=== PATIENT | female | born 1975 | race Caucasian/White ===

== ENCOUNTER 2020-10-29 16:29 | Emergency (ER) | payer OTHER ==
[~2020-10-29 16:29] MED LIST: LIPITOR20 MG PO; SYNTHROID25 MCG PO; ZESTRIL20 MG PO
[2020-10-29 18:15] LABS: BASOPHIL 0.3 % (0-2); EOSINOPHIL 0 % (0-5); HCT 39.4 % (37.0-47.0); HGB 14.1 g/dl (12.5-16.0); LYMPHOCYTE 5.3 % (15-48); MCH 34.4 pg (25.0-31.0); MCHC 35.8 g/dL (32.0-36.0); MCV 96.1 fL (78.0-100.0); MONOCYTE 2.4 % (0-12); MPV 9.5 fL (6.0-9.5); NRBC 0; PLT 115 K/uL (150-400); RDW 12.1 % (11.5-14.0); WBC 7.1 K/uL (4.0-10.5)
[2020-10-29 18:26] LABS: ALBUMIN 3.9 g/dL (3.4-5.0); ALKALINE PHOSHATASE 127 U/L (46-116); ALT 69 U/L (14-59); AST 99 U/L (15-37); BILIRUBIN - TOTAL 0.9 mg/dL (0.2-1.0); BUN 20 mg/dL (7-18); CHLORIDE 92 mmol/L (98-107); CO2 (BICARBONATE) 18 mmol/L (21-32); CREATININE 1.05 mg/dL (0.51-0.95); GLOBULIN (CALCULATION) 3.7 g/dL; GLUCOSE 227 mg/dL (74-106); MAGNESIUM 1.4 mg/dL (1.8-2.4); POTASSIUM 4.3 mmol/L (3.5-5.1); TOTAL PROTEIN 7.6 g/dL (6.4-8.2)
[2020-10-29 18:28] LABS: NEUTROPHIL 91.7 % (41-80)
[2020-10-29 19:13] LABS: INR 1.12 (0.9-1.2); PROTHROMBIN TIME 13.7 SECONDS (11.4-13.6)
[2020-10-29 19:14] LABS: PTT 34.9 SECONDS (22.2-34.7)
[2020-10-29 19:55] LABS: BILIRUBIN NEGATIVE (NEGATIVE); BLOOD 3+ Ery/uL (NEGATIVE); CLARITY HAZY (CLEAR); COLOR YELLOW (YELLOW); GLUCOSE (U) NORMAL (NORMAL); LEUKOCYTES 1+ Leu/uL (NEGATIVE); NITRITE POSITIVE (NEGATIVE); PROTEIN 2+ mg/dL (NEGATIVE); SPECIFIC GRAVITY >=1.030 (1.001-1.030); UROBILINOGEN 0.2 mg/dL (0.2-1.0); pH 5.5 (5.0-9.0)
[2020-10-29 20:01] LABS: AMPHETAMINES NEGATIVE (NEGATIVE); BARBITURATES NEGATIVE (NEGATIVE); ECSTASY (MDMA) NEGATIVE (NEGATIVE); MARIJUANA (THC) NEGATIVE (NEGATIVE); METHADONE NEGATIVE (NEGATIVE); OPIATES NEGATIVE (NEGATIVE); OXYCODONE NEGATIVE (NEGATIVE)
[2020-10-29 20:04] LABS: BACTERIA 4+; MUCOUS MODERATE; URINARY WBC TNTC
== END 2020-10-29 22:33 | disposition other institution (70) ==
LOC: FER 16:29
PROVIDERS: Emergency Medicine
DX: G40.901 Epilepsy, unspecified, not intractable, with status epilepticus (principal); F10.239 Alcohol dependence with withdrawal, unspecified; R74.02 Elevation of levels of lactic acid dehydrogenase [LDH]; E87.2 Acidosis; I10 Essential (primary) hypertension; F17.200 Nicotine dependence, unspecified, uncomplicated; Y90.0 Blood alcohol level of less than 20 mg/100 ml; Z20.822 Contact with and (suspected) exposure to COVID-19
CPT/HCPCS: 31500; 36415; 36600; 70450; 71045; 73590; 80053; 80305; 81001; 82803; 83605; 83735; 84145; 84443; 84484; 85025; 85610; 85730; 92950; 93005; 96365; 96366; 96368; 96375; G0480; J0696; J1953; J2060; J2250; J2560; J2704; J3360; J3411; J3475; J3490; J7030; U0002

== ENCOUNTER 2021-06-13 11:06 | Inpatient (IN) | payer OTHER ==
[~2021-06-13] VITALS: Ht 167.6 cm; Wt 124.5 kg
[2021-06-13 13:32] LABS: BASOPHIL 0.2 % (0-2); EOSINOPHIL 0 % (0-5); HCT 29.3 % (37.0-47.0); HGB 10.8 g/dl (12.5-16.0); LYMPHOCYTE 10.7 % (15-48); MCH 34.4 pg (25.0-31.0); MCHC 36.9 g/dL (32.0-36.0); MCV 93.3 fL (78.0-100.0); MONOCYTE 2.2 % (0-12); MPV 11.7 fL (6.0-9.5); NEUTROPHIL 86.6 % (41-80); NRBC 0; RBC 3.14 M/uL (4.20-5.40); RDW 14.5 % (11.5-14.0); WBC 5.9 K/uL (4.0-10.5)
[2021-06-13 13:54] LABS: PLT 38 K/uL (150-400)
[2021-06-13 13:56] LABS: ALBUMIN 2.1 g/dL (3.4-5.0); BUN/CREAT RATIO (CALC) 6.5 RATIO; CREATININE 3.7 mg/dL (0.51-0.95); GLOBULIN (CALCULATION) 3.9 g/dL; POTASSIUM 3.4 mmol/L (3.5-5.1)
[2021-06-13 13:59] LABS: BILIRUBIN - TOTAL 5.4 mg/dL (0.2-1.0)
[2021-06-13 16:01] LABS: BUN/CREAT RATIO (CALC) 6.4 RATIO; CREATININE 3.59 mg/dL (0.51-0.95); POTASSIUM 3.6 mmol/L (3.5-5.1)
[2021-06-13] MEDS ORDERED: LIPITOR20 MG PO (20:16)
[2021-06-13 21:14] LABS: AMPHETAMINES NEGATIVE (NEGATIVE); BARBITURATES NEGATIVE (NEGATIVE); ECSTASY (MDMA) NEGATIVE (NEGATIVE); MARIJUANA (THC) NEGATIVE (NEGATIVE); METHADONE NEGATIVE (NEGATIVE); OPIATES NEGATIVE (NEGATIVE); OXYCODONE NEGATIVE (NEGATIVE)
[2021-06-13 21:53] LABS: BUN/CREAT RATIO (CALC) 7.4 RATIO; CREATININE 3.53 mg/dL (0.51-0.95)
[2021-06-13 21:54] LABS: POTASSIUM 5.1 mmol/L (3.5-5.1)
[2021-06-14 02:52] LABS: BUN/CREAT RATIO (CALC) 7.4 RATIO; CREATININE 3.65 mg/dL (0.51-0.95)
[2021-06-14 05:10] LABS: HBSAG SCREEN Negative (Negative); HEP A AB, IGM Negative (Negative); HEP B CORE AB, IGM Negative (Negative); HEP C VIRUS AB 0.2 (0.0-0.9)
[2021-06-14 07:32] LABS: ALBUMIN 1.4 g/dL (3.4-5.0); BILIRUBIN - TOTAL 4.7 mg/dL (0.2-1.0); BUN/CREAT RATIO (CALC) 6.5 RATIO; CREATININE 3.85 mg/dL (0.51-0.95); MAGNESIUM 2.3 mg/dL (1.8-2.4); PHOSPHORUS 2.8 mg/dL (2.6-4.7); POTASSIUM 3.8 mmol/L (3.5-5.1); TOTAL PROTEIN 4.4 g/dL (6.4-8.2)
[2021-06-14 07:36] LABS: BASOPHIL 0 % (0-2); EOSINOPHIL 0.4 % (0-5); HCT 23.2 % (37.0-47.0); HGB 8.7 g/dl (12.5-16.0); LYMPHOCYTE 11.5 % (15-48); MCH 34.5 pg (25.0-31.0); MCHC 37.5 g/dL (32.0-36.0); MCV 92.1 fL (78.0-100.0); MONOCYTE 5.9 % (0-12); MPV 13.4 fL (6.0-9.5); NEUTROPHIL 81.4 % (41-80); NRBC 0; PLT 37 K/uL (150-400); RBC 2.52 M/uL (4.20-5.40); RDW 14.7 % (11.5-14.0)
[2021-06-14 07:39] LABS: WBC 5.1 K/uL (4.0-10.5)
[2021-06-14 14:26] LABS: IRON % SATURATION 114.5 %SAT (20-50)
[2021-06-14 14:43] LABS: BILIRUBIN 2+ mg/dL (NEGATIVE); BLOOD 3+ Ery/uL (NEGATIVE); CLARITY CLEAR (CLEAR); COLOR ORANGE (YELLOW); GLUCOSE (U) NORMAL (NORMAL); LEUKOCYTES NEGATIVE Leu/uL (NEGATIVE); NITRITE POSITIVE (NEGATIVE); PROTEIN 1+ mg/dL (NEGATIVE); SPECIFIC GRAVITY 1.025 (1.001-1.030)
[2021-06-14 14:46] LABS: URINE CREATININE 233.09 mg/dL (29.00-226.00); URINE TOTAL PROTEIN-RANDOM 155.2 mg/dL (<11.9)
[2021-06-14 15:06] LABS: BACTERIA 3+
[2021-06-14 15:07] LABS: BUN/CREAT RATIO (CALC) 6.6 RATIO; CREATININE 3.93 mg/dL (0.51-0.95); POTASSIUM 3.5 mmol/L (3.5-5.1)
[2021-06-14 15:57] LABS: BASOPHIL 0 % (0-2); EOSINOPHIL 0.2 % (0-5); HCT 23.4 % (37.0-47.0); HGB 8.7 g/dl (12.5-16.0); LYMPHOCYTE 9.8 % (15-48); MCHC 37.2 g/dL (32.0-36.0); MCV 91.4 fL (78.0-100.0); MONOCYTE 4.7 % (0-12); MPV 12.8 fL (6.0-9.5); NEUTROPHIL 83.9 % (41-80); NRBC 0; PLT 37 K/uL (150-400); RBC 2.56 M/uL (4.20-5.40); RDW 14.6 % (11.5-14.0); WBC 5.8 K/uL (4.0-10.5)
[2021-06-14 18:49] LABS: INR 2.69 (0.9-1.2); PROTHROMBIN TIME 27.6 SECONDS (11.8-13.4)
[2021-06-14 22:36] LABS: BUN/CREAT RATIO (CALC) 6.5 RATIO; CREATININE 4.02 mg/dL (0.51-0.95); POTASSIUM 3.3 mmol/L (3.5-5.1)
--- NOTE | 2021-06-14 23:45 | NUR ---
INITIAL CIWA ASSESSMENT -- CIWA SCORE = 0 RE-ASSESS AT 06/15/2021 @ 0800.
[2021-06-15 04:42] LABS: BASOPHIL 0.1 % (0-2); EOSINOPHIL 1.2 % (0-5); HCT 23.4 % (37.0-47.0); HGB 8.5 g/dl (12.5-16.0); LYMPHOCYTE 13.5 % (15-48); MCH 33.5 pg (25.0-31.0); MCHC 36.3 g/dL (32.0-36.0); MCV 92.1 fL (78.0-100.0); MPV 12.6 fL (6.0-9.5); NRBC 0.3; RBC 2.54 M/uL (4.20-5.40); RDW 14.8 % (11.5-14.0); WBC 6.7 K/uL (4.0-10.5)
[2021-06-15 04:47] LABS: PLT 39 K/uL (150-400)
[2021-06-15 04:48] LABS: NEUTROPHIL 76.6 % (41-80)
[2021-06-15 05:16] LABS: ALBUMIN 1.3 g/dL (3.4-5.0); BILIRUBIN - TOTAL 4.6 mg/dL (0.2-1.0); BUN/CREAT RATIO (CALC) 6.2 RATIO; CREATININE 4.35 mg/dL (0.51-0.95); GLOBULIN (CALCULATION) 2.9 g/dL; POTASSIUM 3.3 mmol/L (3.5-5.1); TOTAL PROTEIN 4.2 g/dL (6.4-8.2)
[2021-06-15 18:39] LABS: CREATININE 4.84 mg/dL (0.51-0.95); POTASSIUM 3.4 mmol/L (3.5-5.1)
--- NOTE | 2021-06-15 22:46 | NUR ---
06/15/20211999 -- CIWA SCORE = 0
[2021-06-16 05:09] LABS: BASOPHIL 0.2 % (0-2); EOSINOPHIL 1.5 % (0-5); HCT 22.5 % (37.0-47.0); HGB 8.3 g/dl (12.5-16.0); LYMPHOCYTE 16.5 % (15-48); MCH 34.2 pg (25.0-31.0); MCHC 36.9 g/dL (32.0-36.0); MCV 92.6 fL (78.0-100.0); MONOCYTE 7.3 % (0-12); MPV 12.9 fL (6.0-9.5); NRBC 0.2; RBC 2.43 M/uL (4.20-5.40); WBC 9.1 K/uL (4.0-10.5)
[2021-06-16 05:17] LABS: INR 2.59 (0.9-1.2); PROTHROMBIN TIME 26.8 SECONDS (11.8-13.4)
[2021-06-16 05:19] LABS: PLT 39 K/uL (150-400)
[2021-06-16 05:20] LABS: NEUTROPHIL 73.2 % (41-80)
[2021-06-16 05:25] LABS: ALBUMIN 1.1 g/dL (3.4-5.0); BILIRUBIN - TOTAL 4.5 mg/dL (0.2-1.0); BUN/CREAT RATIO (CALC) 5.3 RATIO; CREATININE 5.32 mg/dL (0.51-0.95); GLOBULIN (CALCULATION) 2.7 g/dL; POTASSIUM 3.3 mmol/L (3.5-5.1); TOTAL PROTEIN 3.8 g/dL (6.4-8.2)
[2021-06-16] MEDS ORDERED: COREG 6.25MG6.25 MG PO (10:24)
[2021-06-16] MEDS ORDERED: FOLIC ACID1 MG PO (10:24)
--- NOTE | 2021-06-16 12:39 | NUR ---
LATE ENTRY FOR 1030 AM MD ORDER FOR MIDLINE OBTAINED. SUPPLIES FOR A 20G, 10 CM MIDLINE CATHETER WAS GATHERED AND PROCEDURE EXPLAINED TO PATIENT. PROVIDED EDUCATION FOR CARE AND PURPOSE OF THE LINE. TOURNIQUET APPLIED TO LEFT ARM AND VEIN FOR ACCESS WAS VISUALIZED USING ULTRASOUND. THE SITE WAS MARKED WITH SURIGAL MARKING PEN AND THE TOURNIQUET WAS RELEASED. THE SITE WAS CLEANED WITH CHLORHEXIDINE AND THE MIDLINE KIT WAS OPENED IN A STERILE FASHION. A STERILE GOWN AND GLOVES WERE DONNED, A STERILE PROBE COVER WAS APPLIED TO THE ULTRASOUND PROBE, AND THE STERILE DRAPE WAS APPLIED TO THE PATIENT'S LEFT UPPER EXTREMITY OVER THE PLANNED INSERTION SITE TO ESTABLISH STERILE FIELD FOR PLACEMENT. THE TOURNIQUET WAS REAPPLIED BY ASSISTING STAFF MEMBER. THE VEIN WAS REVISUALIZED WITH ULTRASOUND AND VEIN ACCESSED WITH THE INTRODUCER NEEDLE. BLOOD RETURN WAS NOTED THROUGH THE NEEDLE AND THE GUIDEWIRE WAS THREADED WITHOUT DIFFICULTY. THE TOURNIQUET WAS RELEASED. THE SHEATH AND CANNULA WERE PLACED OVER THE GUIDEWIRE WITHOUT DIFFICULTY AND THE GUIDEWIRE WAS FULLY REMOVED. THE SHEATH WAS REMOVED AND BLOOD RETURN WAS NOTED THROUGH THE CANNULA. THE FLUSHED EXTENSION TUBING WAS APPLIED AND BLOOD WAS EASILY ASPIRATED THROUGH THE TUBING. THE TUBING WAS THEN FLUSHED WITHOUT DIFFICULTY. THE STAT-LOCK WAS PLACED OVER THE CANNULA, A BIOPATCH APPLIED OVER THE CANNULA AT THE INSERTION SITE, AND A TEGADERM WAS PLACED TO SECURE THE SITE. THE PATIENT TOLERATED THE PROCEDURE WITHOUT PAIN OR OTHER DIFFICULTY. THE PROCEDURE WAS MONITORED BY DR. NANCY PENG MD. THE PATIENT WAS GIVEN THE PATIENT EDUCATION SHEET FROM THE KIT AND WAS PROVIDED INFORMATION ON PLACEMENT OF THE MIDLINE FOR MONITORING PURPOSES IF NEEDED AFTER DISCHARGE. INFORMATION REGARDING THE KIT WAS PLACED IN THE PATIENT CHART. SIGNAGE WAS PLACED IN THE PATIENT'S ROOM TO ALERT STAFF OF NO BLOOD PRESSURES/STICKS IN LEFT ARM.
[2021-06-16 12:50] LABS: BUN/CREAT RATIO (CALC) 5.2 RATIO; CREATININE 5.62 mg/dL (0.51-0.95); POTASSIUM 3.8 mmol/L (3.5-5.1)
[2021-06-16 15:48] LABS: BUN/CREAT RATIO (CALC) 5.3 RATIO; CREATININE 5.7 mg/dL (0.51-0.95); POTASSIUM 3.9 mmol/L (3.5-5.1)
[2021-06-17 05:04] LABS: BASOPHIL 0.1 % (0-2); EOSINOPHIL 1.5 % (0-5); HCT 22.6 % (37.0-47.0); LYMPHOCYTE 20.3 % (15-48); MCH 33.3 pg (25.0-31.0); MCHC 35.4 g/dL (32.0-36.0); MCV 94.2 fL (78.0-100.0); MONOCYTE 9.7 % (0-12); MPV 12.2 fL (6.0-9.5); RDW 15.7 % (11.5-14.0); WBC 7.3 K/uL (4.0-10.5)
[2021-06-17 05:07] LABS: NEUTROPHIL 62.1 % (41-80); PLT 31 K/uL (150-400)
[2021-06-17 05:29] LABS: INR 2.71 (0.9-1.2); PROTHROMBIN TIME 27.8 SECONDS (11.8-13.4)
[2021-06-17 05:30] LABS: ALBUMIN 2.2 g/dL (3.4-5.0); BUN/CREAT RATIO (CALC) 5.1 RATIO; CREATININE 6.28 mg/dL (0.51-0.95); GLOBULIN (CALCULATION) 2.3 g/dL; MAGNESIUM 2.2 mg/dL (1.8-2.4); POTASSIUM 4.2 mmol/L (3.5-5.1); TOTAL PROTEIN 4.5 g/dL (6.4-8.2)
[2021-06-17 06:05] LABS: BAND 3 % (0-10); EOSINOPHIL(M) 1 % (0-5); LYMPHOCYTE(M) 18 % (15-48); MONOCYTE(M) 4 % (0-12); NEUTROPHILS(M) 74 % (41-80); TOTAL CELL COUNT 100
[2021-06-17 06:07] LABS: PLATELET ESTIMATE DECREASED
[2021-06-17 06:08] LABS: PLATELET MORPHOLOGY NORMAL
[2021-06-18 05:08] LABS: BASOPHIL 0.1 % (0-2); EOSINOPHIL 1.6 % (0-5); HCT 22.7 % (37.0-47.0); LYMPHOCYTE 22.3 % (15-48); MCH 33.2 pg (25.0-31.0); MCHC 35.2 g/dL (32.0-36.0); MCV 94.2 fL (78.0-100.0); MONOCYTE 10.4 % (0-12); MPV 12.1 fL (6.0-9.5); NEUTROPHIL 63.7 % (41-80); NRBC 0.2; RBC 2.41 M/uL (4.20-5.40); RDW 16.1 % (11.5-14.0); WBC 8.4 K/uL (4.0-10.5)
[2021-06-18 05:38] LABS: ALBUMIN 2.6 g/dL (3.4-5.0); BILIRUBIN - TOTAL 5.5 mg/dL (0.2-1.0); BUN/CREAT RATIO (CALC) 4.6 RATIO; CREATININE 7.25 mg/dL (0.51-0.95); PLT 29 K/uL (150-400); POTASSIUM 4.4 mmol/L (3.5-5.1); TOTAL PROTEIN 4.6 g/dL (6.4-8.2)
--- NOTE | 2021-06-18 09:44 | NUR ---
06/18/21 Ms. Pascal's condition has declined. She is on the waiting list for transfer. Emotional support is being provided.
--- NOTE | 2021-06-18 18:28 | NUR ---
SARITA BERRIOS VERIFIED EARLIER IN SHIFT TO [facility] TO KEEP MAP GREATER THAN 55. MD ORTIZ ACKNOWLEDGED AND AGREED AFTER A LINE WAS PLACED AT 1630 MD OTRIZ ADVISED FOR MAP TO BE 65 AND GREATER LEVOPHED WAS SIGNIFIICANTLY INCREASED FROM 1630 TILL 1829 TO TRY AND OBTAIN MAP 65 AND GREATER MD ORTIZ WAS CALLED STATED THAT FROM 1630 TO 1829 LEVOPHED HAD BEEN INCREASED FROM 10MCG TO 24MCG 1829 MD ORTIZ AGREES FOR MAP TO BE MAINTAINED GREATER THAN 55 ORDER WILL BE PLACED WILL CONTINUE TO MONITOR PATIENT
--- NOTE | 2021-06-18 18:44 | NUR ---
1842 CALLED MD ORTIZ TO DISCUSS PT A LINE PRESSURE CURRENT PRESSURE 62/38 AT THE MAX FOR LEVOPHED AT 30MCG AT 113ML/HR DIANA TO PLACE NEW ORDERS MENTONS DOING JUDITH AT FIRST AFTER DISCUSSING THE4 VOLUMNE WITH JUDITH DECIDED HE WOULD BE PLACING AN ORDER FOR DOPAMINE
--- NOTE | 2021-06-18 19:25 | NUR ---
1899 DOPAMIN STARTED ON PATIENT WITH BP 60/30 AT 4MCG/KG/MIN AND 17.9ML AND HOUR 1923 DOPAMINE INCREASED TO 8MCG/KG/MIN 35.7ML FOR BP 60/40
--- NOTE | 2021-06-18 23:26 | NUR ---
1900 BP 72/44 PT KWAKUY ON LVOPHED MAXED OUT AT 30MCG/MIN--113 ML/HR, DOPAMINE STARTED BY ESTELLE AT 1845, RN INCREASED DRIP FROM 4MCG/KG/MIN BY 4MCG/KG/MIN PER 15 MINUTES UNTIL MAXED OUT AT 20MCG/KG/MIN 89.3ML/HR, CALLED , MILLY QUESTIONED WHY SHE WASN'T RECIEVING DIALYSIS, WHY SHE WASN'T TRANSFERED, AND SAID TO GIVE ONE 250ML NS BOLUS NOW AND CALL [facility]RIC[facility], NEPHRO CONSULTED, DR. PULIDO REAFFIRMED NO ACUTE DIALYSIS CAPABLILTY HERE, AND PT HAS BEEN ACCEPTED BY [facility], AND TO CONTINUE TO GIVE NS BOLUS NEEDED. MILLY CALLED, ASKED FOR FURTHER ORDERS BP STILL 57/34 VALE ORDERED TWO X BLOOD CULTURES, ADDITIONAL ABX (LINEZOLD 600MG/300ML @ 300MLS/HR AND CEFEPIME 2G/100ML @100ML/HR) AND THREE MORE NS 250 BOLUSES AND TO INITIATE FLUIDS NS @250ML/HR CONTINUOUS, HE ALSO ORDERED VASOPRESSIN TO TITRATE, RN TITRATED VASOPRESSIN TO MAX AT 2.4U/HR OR 2.4ML/HR...DR JOHNS ER DOCTOR CALLED TO PLACE CENTRAL LINE TO INFUSE FLUIDS/MEDS, DR. JOHNS PLACE R FEMORAL TRIPLE LUMEN AT APPROXIMATELY 2300 AND SAID WAS GOOD FOR USE. PATIENTS BLOOD PRESSURE HAS STABILIZED AT 87/52 VIA RIGHT RADIAL A-LINE.
[2021-06-19 03:59] LABS: BASOPHIL 0.2 % (0-2); EOSINOPHIL 0.5 % (0-5); HCT 24.8 % (37.0-47.0); HGB 8.7 g/dl (12.5-16.0); LYMPHOCYTE 15.1 % (15-48); MCH 33.9 pg (25.0-31.0); MCHC 35.1 g/dL (32.0-36.0); MCV 96.5 fL (78.0-100.0); MPV 12.3 fL (6.0-9.5); NEUTROPHIL 74.6 % (41-80); NRBC 0.3; RBC 2.57 M/uL (4.20-5.40); RDW 16.5 % (11.5-14.0); WBC 14.3 K/uL (4.0-10.5)
--- NOTE | 2021-06-19 04:01 | NUR ---
V/S 06/18/2021-06/19/2021 1900-81/46, 88HR 2000-57/43, 120HR 2100-61/34, 117HR 2200-91/54, 112HR 2300-103/61, 110HR 0000-90/58, 108HR 0100-79/52, 107HR 0200-82/55, 118HR 0300-81/53, 115HR 0400-77/52, 115HR
[2021-06-19 04:17] LABS: PLT 34 K/uL (150-400)
[2021-06-19 04:24] LABS: ALBUMIN 2.7 g/dL (3.4-5.0); BILIRUBIN - TOTAL 5.5 mg/dL (0.2-1.0); BUN/CREAT RATIO (CALC) 4.5 RATIO; CREATININE 7.29 mg/dL (0.51-0.95); GLOBULIN (CALCULATION) 2.2 g/dL; PHOSPHORUS 3.3 mg/dL (2.6-4.7); POTASSIUM 4.2 mmol/L (3.5-5.1); TOTAL PROTEIN 4.9 g/dL (6.4-8.2)
== END 2021-06-19 19:30 | disposition other institution (70) | DRG 682 ==
LOC: FER 11:06 → FTCU 18:20 → FICU 06-17 12:26
PROVIDERS: Allergy & Immunology; Internal Medicine; Internal Medicine Nephrology; Nurse Practitioner Family; ADMIT Allergy & Immunology Allergy
PROC: HZ2ZZZZ Detoxification Services for Substance Abuse Treatment (ICD-10-PCS; principal; 2021-06-13)
PROC: 05HY33Z Insertion of Infusion Device into Upper Vein, Percutaneous Approach (ICD-10-PCS; 2021-06-16)
PROC: 3E033XZ Introduction of Vasopressor into Peripheral Vein, Percutaneous Approach (ICD-10-PCS; 2021-06-17)
DX: N17.9 Acute kidney failure, unspecified (principal); K76.7 Hepatorenal syndrome; A41.9 Sepsis, unspecified organism; R65.21 Severe sepsis with septic shock; D61.818 Other pancytopenia; N39.0 Urinary tract infection, site not specified; E87.1 Hypo-osmolality and hyponatremia; D68.9 Coagulation defect, unspecified; Z20.822 Contact with and (suspected) exposure to COVID-19; K70.10 Alcoholic hepatitis without ascites; K70.31 Alcoholic cirrhosis of liver with ascites; K72.90 Hepatic failure, unspecified without coma; R19.5 Other fecal abnormalities; I95.9 Hypotension, unspecified; E16.2 Hypoglycemia, unspecified; N26.1 Atrophy of kidney (terminal); I10 Essential (primary) hypertension; E78.5 Hyperlipidemia, unspecified; E86.0 Dehydration; E03.9 Hypothyroidism, unspecified; G47.33 Obstructive sleep apnea (adult) (pediatric); E86.1 Hypovolemia; E83.51 Hypocalcemia; F10.10 Alcohol abuse, uncomplicated; Z90.3 Acquired absence of stomach [part of]; Z87.891 Personal history of nicotine dependence; Z79.890 Hormone replacement therapy; Z79.899 Other long term (current) drug therapy
CPT/HCPCS: 36415; 36600; 80048; 80053; 80061; 80074; 80305; 81001; 82140; 82150; 82570; 82803; 82962; 83036; 83540; 83550; 83605; 83690; 83735; 84100; 84156; 84300; 84439; 84443; 84484; 85025; 85610; 87040; 93005; 96365; 96375; 96376; 97162; 97166; 97530-GP; 97535; C1751; C9113; G0480; J0610; J0692; J0696; J1265; J1940; J2020; J2354; J2405; J3411; J3475; J3480; J7030; J7050; J7060; J7070; J7120; J7121; J7512; P9046; U0002